=== PATIENT | male | born 1985 | race American Indian/Alaskan Native ===

== ENCOUNTER 2016-10-03 07:15 | Emergency (ER) | payer BC ==
[2016-10-03 07:45] VITALS: BP 141/92
[2016-10-03] MEDS ORDERED: ZOFRAN IV ONE (07:46)
[2016-10-03] MEDS ORDERED: TORADOL IV ONE ×2 (07:46→10:13)
[2016-10-03 08:30] LABS: Bacteria,Urine 1+ /HPF (Negative); Bilirubin,Urine NEG (Negative); Blood,Urine LG (Negative); Ketones,Urine NEG (Negative); Leukocyte Esterase,Urine NEG (Negative); Mucus,Urine FEW /HPF; Nitrite,Urine NEG (Negative); Protein,Urine <15 mg/dL mg/dL (Negative); Urobilinogen,Urine < 2.0 mg/dL (<2.0)
--- NOTE | 2016-10-03 08:30 | Emergency Department Report ---
ED Abdominal Pain HPI - General Chief Complaint: Abdominal Pain Stated Complaint: L FLANK PAIN/VOMITING Time Seen by Provider: 10/03/16 08:24 Source: patient Mode of arrival: Ambulatory Limitations: No Limitations - History of Present Illness Initial Comments: PT states he woke up with L sided abd pain, + n/v. PT states he woke up and drank a lot of water and then threw the water up. PT currently denies pain. PT states nausea improved after he vomited the water up. PT denies having hx of similar symptoms. MD Complaint: flank pain -: Gradual, hour(s) Location: L flank Radiation: LLQ Severity scale (0 -10): 10 Quality: stabbing, sharp Consistency: now resolved Improves With: vomiting Worsens With: nothing Associated Symptoms: nausea, vomiting. denies: dysuria, hematuria - Related Data Previous Rx's Medication Instructions Recorded Last Taken Type Acetaminophen/Codeine [Tylenol #3] 1 tab PO Q6H PRN #12 tab 10/03/16 Unknown Rx Ondansetron [Zofran Odt] 4 mg PO Q8HR PRN #10 tab.rapdis 10/03/16 Unknown Rx Tamsulosin [Flomax] 0.4 mg PO QDAY #2 cap 10/03/16 Unknown Rx Allergies Allergy/AdvReac Type Severity Reaction Status Date / Time No Known Allergies Allergy Unverified 10/03/16 07:45 ED Review of Systems ROS: Stated complaint: L FLANK PAIN/VOMITING Other details as noted in HPI Comment: All other systems reviewed and negative Constitutional: denies: chills, fever Cardiovascular: denies: chest pain Gastrointestinal: abdominal pain, nausea, vomiting Genitourinary: denies: dysuria, frequency, hematuria Psychiatric: anxiety (pt states the pain was so bad, he thought he was going to ) ED Past Medical Hx - Past Medical History Previous Medical History?: No - Surgical History Past Surgical History?: No - Social History Smoking Status: Never Smoker Substance Use Type: None - Medications Home Medications: Home Medications Medication Instructions Recorded Confirmed Last Taken Type Acetaminophen/Codeine [Tylenol #3] 1 tab PO Q6H PRN #12 tab 10/03/16 Unknown Rx Ondansetron [Zofran Odt] 4 mg PO Q8HR PRN #10 tab.rapdis 10/03/16 Unknown Rx Tamsulosin [Flomax] 0.4 mg PO QDAY #2 cap 10/03/16 Unknown Rx ED Physical Exam - General Limitations: No Limitations General appearance: alert, in no apparent distress - Head Head exam: Present: atraumatic, normocephalic, normal inspection - Eye Eye exam: Present: normal appearance, PERRL, EOMI. Absent: conjunctival injection - ENT ENT exam: Present: normal exam, normal external ear exam - Neck Neck exam: Present: normal inspection, full ROM - Respiratory Respiratory exam: Present: normal lung sounds bilaterally. Absent: respiratory distress, chest wall tenderness - Cardiovascular Cardiovascular Exam: Present: regular rate, normal rhythm, normal heart sounds - GI/Abdominal GI/Abdominal exam: Present: soft, normal bowel sounds. Absent: distended, tenderness, guarding, rebound - Extremities Exam Extremities exam: Present: normal inspection, full ROM - Back Exam Back exam: Present: normal inspection, full ROM. Absent: tenderness, CVA tenderness (R), CVA tenderness (L) - Neurological Exam Neurological exam: Present: alert, oriented X3 - Psychiatric Psychiatric exam: Present: normal affect, normal mood - Skin Skin exam: Present: warm, dry, intact ED Course Vital Signs 10/03/16 07:40 Temperature 98.1 F Pulse Rate 82 Respiratory 18 Rate Blood Pressure 141/92 O2 Sat by Pulse 100 Oximetry - Reevaluation(s) Reevaluation #1: 10/03/16 08:29 PT aware of plan of care. PT has no questions at this time. Reevaluation #2: 10/03/16 10:39 PT aware of dx and plan of care. PT given strainer and instructions on use. PT aware he will need to follow up with urology. PT has no questions at this time. - Pulse Oximetry Interpretation Digit-Finger Initial Pulse Oximetry Readin Actions Taken: none ED Medical Decision Making - Lab Data Result diagrams: 10/03/16 08:37 10/03/16 08:37 Labs 10/03/16 10/03/16 10/03/16 07:49 08:37 08:37 WBC 6.8 RBC 5.55 H Hgb 14.9 Hct 44.8 MCV 81 L MCH 27 L MCHC 33 RDW 13.2 Plt Count 255 Lymph % (Auto) 26.8 [place] % (Auto) 9.9 H Eos % (Auto) 1.4 Baso % (Auto) 0.2 Lymph # 1.8 [place] # 0.7 Eos # 0.1 Baso # 0.0 Seg Neutrophils % 61.7 Seg Neutrophils # 4.2 Sodium 145 Potassium 4.1 Chloride 105.5 Carbon Dioxide 26 Anion Gap 18 BUN 10 Creatinine 0.9 Estimated GFR > 60 BUN/Creatinine Ratio 11.11 Glucose 124 H Calcium 8.8 Total Bilirubin 0.20 AST 26 ALT 27 Alkaline Phosphatase 97 Total Protein 7.3 Albumin 4.0 Albumin/Globulin Ratio 1.2 Lipase 26 Urine Color Yellow Urine Turbidity Clear Urine pH 5.0 Ur Specific [place] 1.019 Urine Protein <15 mg/dl Urine Glucose (UA) Neg Urine Ketones Neg Urine Blood Lg Urine Nitrite Neg Urine Bilirubin Neg Urine Urobilinogen < 2.0 Ur Leukocyte Esterase Neg Urine WBC (Auto) 2.0 Urine RBC (Auto) 11.0 Urine Bacteria (Auto) 1+ Urine Mucus Few - Radiology Data Radiology results: report reviewed CT ABD/ Pelvis - 5 mm stone in L kidney, 3 mm hyperdensity in post bladder, suggesting recently passed stone. - Differential Diagnosis renal colic Critical Care Time: No Critical care attestation.: If time is entered above; I have spent that time in minutes in the direct care of this critically ill patient, excluding procedure time. ED Disposition Clinical Impression: Nephrolithiasis, Flank pain, acute Nausea and vomiting Qualifiers: Vomiting type: unspecified Vomiting Intractability: non-intractable Qualified Code(s): R11.2 - Nausea with vomiting, unspecified Disposition: DC-01 TO HOME OR SELFCARE Is pt being admited?: No Does the pt Need Aspirin: No Condition: Stable Instructions: Kidney Stones (ED), How to Strain Your Urine (ED), Flank Pain (ED ) Additional Instructions: No driving or ETOH after taking Tylenol #3 Follow up with Urologist in 2-3 days Return to ED if worsening or concerns Change positions slowly when taking Flomax follow up with PCP in the next week for bp recheck Prescriptions: Acetaminophen/Codeine [Tylenol #3] 1 tab PO Q6H PRN #12 tab PRN Reason: Pain , Severe (7-10) Ondansetron [Zofran Odt] 4 mg PO Q8HR PRN #10 tab.rapdis PRN Reason: Nausea Tamsulosin [Flomax] 0.4 mg PO QDAY #2 cap Referrals: PRIMARY CARE, [Primary Care Provider] - 3-5 Days ADIEL HINTON MD [Staff Physician] - 3-5 Days [facility] [Outside] - 3-5 Days [facility] [Provider Group] - 3-5 Days Time of Disposition: 10:45
--- NOTE | 2016-10-03 08:35 | Cat Scan Report ---
CT OF THE ABDOMEN AND PELVIS WITHOUT CONTRAST HISTORY: Left flank pain. TECHNIQUE: Helical CT without contrast. Sagittal and coronal reformatted images. FINDINGS: Both kidneys are normal size, contour and position. A solitary 5 mm calyceal stone is identified in the inferior left kidney. No evidence for renal cystic disease, mass, hydronephrosis or perinephric fluid. There is a tiny 3 mm hyperdensity along the posterior wall of the bladder which probably represents a recently passed stone. This is best demonstrated on series 2, image 317. The bladder is unremarkable otherwise. The liver, biliary system, pancreas, spleen, adrenal glands, aorta, bowel loops and appendix are unremarkable. No evidence for ascites, adenopathy, free air or acute inflammation. Heart size is within normal limits. The visualized lung bases are clear. No acute bony abnormality. Right gynecomastia is noted. IMPRESSION: 5 mm left renal calculus, nonobstructing. Tiny calcific density in the bladder which probably represents a recently passed stone.
[2016-10-03 08:55] LABS: Basophils % (Auto) 0.2 % (0.0-1.8); Eosinophils % (Auto) 1.4 % (0.0-4.3); Hematocrit 44.8 % (35.5-45.6); Hemoglobin 14.9 gm/dl (11.8-15.2); Mean Corpuscular HGB Conc 33 % (32-34); Mean Corpuscular Hemoglobin 27 pg (28-32); Mean Corpuscular Volume 81 fl (84-94); Platelet Count 255 K/mm3 (140-440); Red Blood Count 5.55 M/mm3 (3.65-5.03); Red Cell Distribution Width 13.2 % (13.2-15.2); White Blood Count 6.8 K/mm3 (4.5-11.0)
[2016-10-03 10:08] LABS: Alanine Aminotransferase 27 units/L (7-56); Albumin/Globulin Ratio 1.2 %; Alkaline Phosphatase 97 units/L (35-129); Anion Gap 18 mmol/L; BUN/Creatinine Ratio 11.11; Blood Urea Nitrogen 10 mg/dL (9-20); Calcium 8.8 mg/dL (8.4-10.2); Carbon Dioxide 26 mmol/L (22-30); Chloride 105.5 mmol/L (98-107); Glucose 124 mg/dL (75-100); Lipase 26 units/L (13-60); Potassium 4.1 mmol/L (3.6-5.0); Sodium 145 mmol/L (137-145); Total Protein 7.3 g/dL (6.3-8.2)
== END 2016-10-03 11:06 | disposition home or self-care (01) ==
LOC: ED 07:15
DX: N20.0 Calculus of kidney (principal)
CPT/HCPCS: 36415; 74176; 80053; 81001; 83690; 85025; 96374; 96375; 99284; J1885; J2405